=== PATIENT | female | born 1965 | race Caucasian/White ===

== ENCOUNTER → 2016-10-17 | Outpatient (CLI) | payer OTHER ==
--- NOTE | 2016-10-18 07:53 | XR ---
EXAMINATION TYPE: XR chest 2V DATE OF EXAM: 10/17/2016 11:55 AM COMPARISON: NONE HISTORY: Cough FINDINGS: The lungs are clear and there is no pneumothorax, pleural effusion, or focal pneumonia. Hypertrophic and degenerative change of the spine. Mild prominence of the left hilum. IMPRESSION: 1. No acute process. There is mild prominence of the left hilum. Recommend CT scan of the chest.
== END | disposition home or self-care (01) ==
LOC: RADXRYALE 11:16
PROVIDERS: ATTEND Internal Medicine
DX: R91.8 Other nonspecific abnormal finding of lung field (principal); R05 Cough
CPT/HCPCS: 71020

== ENCOUNTER → 2016-10-25 | Outpatient (CLI) | payer OTHER ==
--- NOTE | 2016-10-28 10:43 | MM ---
Reason for exam: screening (asymptomatic). Last mammogram was performed 1 year and 2 months ago. History: Family history of breast cancer in maternal aunt at age 50. Physical Findings: A clinical breast exam by your physician is recommended on an annual basis and results should be correlated with mammographic findings. MG 3D Screening Mammo W/Cad Bilateral CC and MLO view(s) were taken. Prior study comparison: August 25, 2015, bilateral MG 3d screening mammo w/cad. March 11, 2014, bilateral MG screening mammo w CAD. The breast tissue is heterogeneously dense. This may lower the sensitivity of mammography. There is chronic nodularity in the right breast. There is no discrete abnormality. ASSESSMENT: Benign, BI-RAD 2 RECOMMENDATION: Routine screening mammogram of both breasts in 1 year.
== END | disposition home or self-care (01) ==
LOC: RADMAMWWP 10:10
PROVIDERS: ATTEND Obstetrics & Gynecology
DX: Z12.31 Encounter for screening mammogram for malignant neoplasm of breast (principal)
CPT/HCPCS: 77063; G0202

== ENCOUNTER → 2016-11-04 | Outpatient (CLI) | payer OTHER ==
--- NOTE | 2016-11-04 08:58 | CT ---
EXAMINATION TYPE: CT chest w con DATE OF EXAM: 11/04/2016 8:36 AM COMPARISON: NONE HISTORY: Abnormal Chest Xray CT DLP: 378.7 mGycm Automated exposure control for dose reduction was used. CONTRAST: CT scan of the chest is performed with IV Contrast, patient injected with 100 mL of Omnipaque 300. FINDINGS: LUNGS: The lungs are grossly clear, there is no concerning parenchymal mass or nodule identified. T here is no pleural effusion or pneumothorax seen. The tracheobronchial tree is patent. MEDIASTINUM: There are no greater than 1 cm hilar or mediastinal lymph nodes. No pericardial effusi on is seen. Thoracic aorta is of normal caliber. The heart is not enlarged. UPPER ABDOMEN: 2.5 cm peripheral enhancing lesion is seen within the posterior segment right hepatic lobe may reflect hemangioma however dedicated evaluation of the liver is advised utilizing hemangioma protocol. OTHER: No additional significant abnormality is seen. IMPRESSION: 1. No abnormal lung finding identified. 2. Recommend hemangioma protocol CT for liver finding as noted above.
== END | disposition home or self-care (01) ==
LOC: RADCTMAIN 08:05
PROVIDERS: ATTEND Internal Medicine
DX: R91.8 Other nonspecific abnormal finding of lung field (principal)
CPT/HCPCS: 71260; Q9967

== ENCOUNTER → 2016-11-12 | Outpatient (CLI) | payer OTHER ==
[2016-11-12 18:45] LABS: Blood Urea Nitrogen 15 mg/dL (7-17); Non-African American GFR(MDRD) >60 (>60 ml/min/1.73 sqM)
--- NOTE | 2016-11-12 21:48 | CT ---
EXAMINATION TYPE: CT abdomen wo/w con DATE OF EXAM: 11/12/2016 7:54 PM HISTORY: Pt states of liver disease. Recent abnormal CT. CT DLP: 1460.6mGycm Automated Exposure Control for Dose Reduction was Utilized. CONTRAST: CT scan of the abdomen is performed with oral and without and with IV Contrast, patient injected wit h 100 mL of Omnipaque 300. COMPARISON: CT chest November 04, 2016. FINDINGS: LUNG BASES: No significant abnormality is appreciated. LIVER/GB: Corresponding to recent CT there is 2.6 x 2.5 cm low dense lesion posterior segment right h epatic lobe that shows peripheral nodular enhancement with progressive centripetal filling, imaging c haracteristics consistent with hemangioma. Exam is slightly suboptimal due to nonideal portal venous and delayed images felt felt late in acquisition . PANCREAS: No significant abnormality is seen. SPLEEN: No significant abnormality is seen. ADRENALS: No significant abnormality is seen. KIDNEYS: No significant abnormality is seen. BOWEL: Oral contrast does not reach colonic level. No suspicious small or large bowel dilatation is s een. LYMPH NODES: No greater than 1cm abdominal lymph nodes are appreciated. Slightly prominent left sided mesenteric lymph nodes with some mild mesenteric engorgement is noted seen best on coronal images fo r reference (image 64 series 13). Consider mild diverticulitis or bowel inflammatory change. OSSEOUS STRUCTURES: Multilevel spurring in the spine is present. OTHER: No significant additional abnormality is seen. IMPRESSION: Liver lesion on recent CT is felt to reflect benign hemangioma.
== END | disposition home or self-care (01) ==
LOC: RADCTMAIN 18:11
PROVIDERS: ATTEND Internal Medicine
DX: K76.89 Other specified diseases of liver (principal)
CPT/HCPCS: 82565; 84520; 74170; 36415; Q9967

== ENCOUNTER → 2017-11-03 | Outpatient (CLI) | payer OTHER ==
--- NOTE | 2017-11-04 09:37 | MM ---
Reason for exam: screening (asymptomatic). Last mammogram was performed 1 year ago. History: Patient is postmenopausal. Family history of breast cancer in maternal aunt at age 50. Physical Findings: A clinical breast exam by your physician is recommended on an annual basis and results should be correlated with mammographic findings. MG 3D Screening Mammo W/Cad Bilateral CC and MLO view(s) were taken. Prior study comparison: October 25, 2016, bilateral MG 3d screening mammo w/cad. August 25, 2015, bilateral MG 3d screening mammo w/cad. The breast tissue is heterogeneously dense. This may lower the sensitivity of mammography. There is chronic nodularity bilaterally. There is no dominant lesion. No significant changes when compared with prior studies. ASSESSMENT: Benign, BI-RAD 2 RECOMMENDATION: Routine screening mammogram of both breasts in 1 year.
== END | disposition home or self-care (01) ==
LOC: RADMAMWWP 06:59
PROVIDERS: ATTEND Obstetrics & Gynecology
DX: Z12.31 Encounter for screening mammogram for malignant neoplasm of breast (principal)
CPT/HCPCS: 77063; 77067

== ENCOUNTER → 2018-11-27 | Outpatient (CLI) | payer OTHER ==
--- NOTE | 2018-12-01 08:40 | MM ---
Reason for exam: screening (asymptomatic). Last mammogram was performed 1 year and 1 month ago. History: Patient is postmenopausal. Family history of breast cancer in maternal aunt at age 50. Physical Findings: A clinical breast exam by your physician is recommended on an annual basis and results should be correlated with mammographic findings. MG 3D Screening Mammo W/Cad Bilateral CC and MLO view(s) were taken. Prior study comparison: November 03, 2017, bilateral MG 3d screening mammo w/cad. October 25, 2016, bilateral MG 3d screening mammo w/cad. No significant changes when compared with prior studies. ASSESSMENT: Benign, BI-RAD 2 RECOMMENDATION: Routine screening mammogram of both breasts in 1 year.
== END | disposition home or self-care (01) ==
LOC: RADMAMWWP 09:09
PROVIDERS: ATTEND Obstetrics & Gynecology
DX: Z12.31 Encounter for screening mammogram for malignant neoplasm of breast (principal); Z80.3 Family history of malignant neoplasm of breast
CPT/HCPCS: 77063; 77067

== ENCOUNTER → 2019-04-23 | Outpatient (CLI) | payer OTHER ==
--- NOTE | 2019-04-23 14:19 | XR ---
EXAMINATION TYPE: XR wrist complete LT DATE OF EXAM: 04/23/2019 COMPARISON: None HISTORY: Pain TECHNIQUE: Three-view left wrist FINDINGS: No acute fracture or dislocation is evident. Joint spaces are preserved. Soft tissues are n ormal. IMPRESSION: 1. Normal three-view left wrist
== END ==
LOC: RADXRYALE 14:03
PROVIDERS: ATTEND Internal Medicine
DX: M25.532 Pain in left wrist (principal)

== ENCOUNTER → 2020-05-29 | Outpatient (CLI) | payer OTHER ==
--- NOTE | 2020-05-30 09:33 | MM ---
Reason for exam: screening (asymptomatic). Last mammogram was performed 1 year and 6 months ago. History: Patient is postmenopausal. Family history of breast cancer in maternal aunt at age 50. Physical Findings: A clinical breast exam by your physician is recommended on an annual basis and results should be correlated with mammographic findings. MG 3D Screening Mammo W/Cad Bilateral CC and MLO view(s) were taken. Prior study comparison: November 27, 2018, bilateral MG 3d screening mammo w/cad. November 03, 2017, bilateral MG 3d screening mammo w/cad. The breast tissue is heterogeneously dense. This may lower the sensitivity of mammography. There is chronic nodularity bilaterally. There is no discrete abnormality. ASSESSMENT: Benign, BI-RAD 2 RECOMMENDATION: Routine screening mammogram of both breasts in 1 year.
== END | disposition home or self-care (01) ==
LOC: RADMAMWWP 09:18
PROVIDERS: ATTEND Obstetrics & Gynecology
DX: Z12.31 Encounter for screening mammogram for malignant neoplasm of breast (principal)
CPT/HCPCS: 77063; 77067

== ENCOUNTER → 2021-06-26 | Outpatient (CLI) | payer OTHER ==
--- NOTE | 2021-06-28 13:59 | MM ---
Reason for exam: screening (asymptomatic). Last mammogram was performed 1 year and 1 month ago. History: Patient is postmenopausal. Family history of breast cancer in maternal aunt at age 50. Physical Findings: A clinical breast exam by your physician is recommended on an annual basis and results should be correlated with mammographic findings. MG 3D Screening Mammo W/Cad Bilateral CC and MLO view(s) were taken. Prior study comparison: May 29, 2020, bilateral MG 3d screening mammo w/cad. November 27, 2018, bilateral MG 3d screening mammo w/cad. There are scattered fibroglandular densities. No significant changes when compared with prior studies. ASSESSMENT: Benign, BI-RAD 2 RECOMMENDATION: Routine screening mammogram of both breasts in 1 year.
== END | disposition home or self-care (01) ==
LOC: RADMAMWWP 14:31
PROVIDERS: ATTEND Obstetrics & Gynecology
DX: Z12.31 Encounter for screening mammogram for malignant neoplasm of breast (principal); Z80.3 Family history of malignant neoplasm of breast; Z78.0 Asymptomatic menopausal state
CPT/HCPCS: 77063; 77067

== ENCOUNTER → 2022-08-16 | Outpatient (CLI) | payer BC ==
--- NOTE | 2022-08-19 08:35 | MM ---
Reason for Exam: Screening (asymptomatic). Last mammogram was performed 1 year(s) and 2 month(s) ago. Patient History: Menarche at age 18. First Full-Term at age 30. Postmenopausal. Maternal aunt had breast cancer, age 50. Risk Values: Tayla 5 year model risk: 1.2%. NCI Lifetime model risk: 8.3%. Prior Study Comparison: 11/27/2018 Bilateral Screening Mammogram, [facility]. 05/29/2020 Bilateral Screening Mammogram, [facility]. 06/26/2021 Bilateral Screening Mammogram, [facility]. Tissue Density: There are scattered fibroglandular densities. Findings: Analyzed By CAD. Benign-appearing bilateral axillary lymph nodes. Skin lesion inferior medial aspect left breast redemonstrated. There is no suspicious new group of microcalcifications or new suspicious mass in either breast. Overall Assessment: Benign, BI-RAD 2 Management: Screening Mammogram of both breasts in 1 year. A clinical breast exam by your physician is recommended on an annual basis and results should be correlated with mammographic findings. Electronically signed and approved by: Yosef Yang M.D.
== END | disposition home or self-care (01) ==
LOC: RADMAMWWP 16:53
PROVIDERS: ATTEND Internal Medicine
DX: Z12.31 Encounter for screening mammogram for malignant neoplasm of breast (principal); Z78.0 Asymptomatic menopausal state; Z80.3 Family history of malignant neoplasm of breast
CPT/HCPCS: 77063; 77067

== ENCOUNTER → 2023-08-22 | Outpatient (CLI) | payer BC ==
--- NOTE | 2023-08-22 08:28 | MM ---
Reason for Exam: Screening (asymptomatic). Last screening mammogram was performed 12 month(s) ago. Patient History: Menarche at age 18. First Full-Term at age 30. Postmenopausal. Patient has history of breast feeding. Maternal aunt had breast cancer, age 50. Risk Values: Tayla 5 year model risk: 1.2%. NCI Lifetime model risk: 8.1%. Prior Study Comparison: 05/29/2020 Bilateral Screening Mammogram, [facility]. 06/26/2021 Bilateral Screening Mammogram, [facility]. 08/16/2022 Bilateral MG 3D screening mammo w/cad, [facility]. Tissue Density: The breast tissue is heterogeneously dense. This may lower the sensitivity of mammography. Findings: Analyzed By CAD. There is no suspicious group of microcalcifications or new suspicious mass in either breast. Overall Assessment: Negative, BI-RAD 1 Management: Screening Mammogram of both breasts in 1 year. A clinical breast exam by your physician is recommended on an annual basis and results should be correlated with mammographic findings. Note on Tayla scores and lifetime risk: 1. A Tayla score greater than 3% is considered moderate risk. If this is the case, consider specialist referral to assess eligibility for a risk reducing agent. If overall lifetime risk for the development of breast cancer is 20% or higher, the patient may qualify for future screening with alternating mammogram and breast MRI. Electronically signed and approved by: Gustavo Navas D.O.
== END | disposition home or self-care (01) ==
LOC: RADMAMWWP 07:34
PROVIDERS: ATTEND Internal Medicine
DX: Z12.31 Encounter for screening mammogram for malignant neoplasm of breast (principal); Z78.0 Asymptomatic menopausal state; Z80.3 Family history of malignant neoplasm of breast
CPT/HCPCS: 77063; 77067

== ENCOUNTER → 2024-08-24 | Outpatient (CLI) | payer BC ==
--- NOTE | 2024-08-27 22:48 | MM ---
Reason for Exam: Screening (asymptomatic). Last screening mammogram was performed 12 month(s) ago. Patient History: Menarche at age 18. First Full-Term at age 30. Postmenopausal. Patient has history of breast feeding. Maternal aunt had breast cancer, age 50. Risk Values: Tayla 5 year model risk: 1.3%. NCI Lifetime model risk: 8.0%. Prior Study Comparison: 06/26/2021 Bilateral Screening Mammogram, [facility]. 08/16/2022 Bilateral MG 3D screening mammo w/cad, [facility]. 08/22/2023 Bilateral MG 3D screening mammo w/cad, [facility]. Tissue Density: There are scattered areas of fibroglandular density. Findings: Analyzed By CAD. The pattern is symmetrical. No significant interval change is evident. Chronic densities are within the medial left breast, stable. No suspicious groups of microcalcifications, spiculated or lobular masses, architectural distortion or other secondary signs of malignancy are mammographically apparent. Overall Assessment: Benign, BI-RAD 2 Management: Screening Mammogram of both breasts in 1 year. A negative mammogram report should not preclude additional follow up of suspicious palpable abnormalities. Patient should continue monthly self breast exam. A clinical breast exam by your physician is recommended on an annual basis and results should be correlated with mammographic findings. Note on Tayla scores and lifetime risk: 1. A Tayla score greater than 3% is considered moderate risk. If this is the case, consider specialist referral to assess eligibility for a risk reducing agent. 2. If overall lifetime risk for the development of breast cancer is 20% or higher, the patient may qualify for future screening with alternating mammogram and breast MRI. [facility], , 08/27/2024 10:45 PM. Electronically signed and approved by: Fidencio Brown D.O. Radiologis
== END | disposition home or self-care (01) ==
LOC: RADMAMWWP 07:01
PROVIDERS: ATTEND Internal Medicine
DX: Z12.31 Encounter for screening mammogram for malignant neoplasm of breast (principal); R92.323 Mammographic fibroglandular density, bilateral breasts; Z78.0 Asymptomatic menopausal state; Z80.3 Family history of malignant neoplasm of breast
CPT/HCPCS: 77063; 77067

== ENCOUNTER → 2025-03-22 | Outpatient (CLI) | payer BC ==
--- NOTE | 2025-03-28 07:38 | MR ---
EXAMINATION TYPE: MR wrist LT wo con DATE OF EXAM: 03/22/2025 11:46 AM COMPARISON: None. CLINICAL INDICATION: Female, 59 years old with history of M05.89 OTH RHEUMATOID ARTHRITIS W RHEUMATOI D FACTO, Lt wrist pain TECHNIQUE: Multiplanar, multisequence images of the left wrist were obtained without IV contrast. FINDINGS: There is generalized soft tissue swelling throughout the wrist. Moderate radiocarpal and distal radia l ulnar joint effusions are also present. Prominent patchy osseous edema throughout the carpal bones and CMC joints. Small marginal erosions are present particularly along the radial aspect of the carpus at the scaphoi d trapezial joint and also within the radial aspect of the capitate. Also at the second CMC joint. Large subcortical cysts noted within the second and third metacarpals. Effusion and synovial thickeni ng along the prestyloid recess. Mild tenosynovial fluid along the volar flexor tendons at the level of the carpus and also along the second extensor compartment. There is marked thinning along the central portion of the TFC suggesting partial thickness tear. Borderline caliber to the median nerve at the level of the distal wrist crease with cross-sectional a jos of 13.3 sq mm. Degenerative signal within the dorsal band of the scapholunate ligament which otherwise remains intac t. No acute or healing fracture is seen. Incidental 7 mm ganglion cyst along the dorsal aspect of the se cond-third intermetacarpal joint. Background moderate degenerative change at the first CMC joint. IMPRESSION: 1. Moderate wrist and intercarpal joint effusions with synovitis, generalized soft tissue edema, exte nsive periarticular osseous edema, scattered small marginal erosions, and subcortical cysts. Overall findings are in keeping with patient's reported rheumatoid arthritis. 2. Concurrent moderate first CMC joint OA. 3. Mild tenosynovitis along the volar flexor tendons at the level of the carpus and also along the se cond dorsal compartment. 4. Partial tear of the the central disc of the TFC. [facility], , 03/28/2025 7:35 AM
== END | disposition home or self-care (01) ==
LOC: RADMRIMAIN 10:58
PROVIDERS: ATTEND Internal Medicine Rheumatology
DX: S63.591A Other specified sprain of right wrist, initial encounter (principal); M05.89 Other rheumatoid arthritis with rheumatoid factor of multiple sites; M18.12 Unilateral primary osteoarthritis of first carpometacarpal joint, left hand; M65.932 Unspecified synovitis and tenosynovitis, left forearm; R60.0 Localized edema; X58.XXXA Exposure to other specified factors, initial encounter